=== PATIENT | male | born 1980 | race Caucasian/White ===

== ENCOUNTER 2021-01-22 12:57 | Day surgery (SDC) | payer SELFPAY ==
[2021-01-22] VITALS (8 sets, daily range): BP systolic 118–126; BP diastolic 59–82
[~2021-01-22] VITALS: Ht 177.8 cm; Wt 111.1 kg
--- NOTE | 2021-01-22 13:13 | ED Abdominal Pain ---
General Chief Complaint: Abdominal/GI Problems Stated Complaint: STOMACH PAIN Source of Information: Patient Exam Limitations: No Limitations History of Present Illness Date Seen by Provider: Jan 22, 2021 Time Seen by Provider: 13:11 Initial Comments ER with right lower quadrant abdominal pain that he noticed upon awakening this morning. Had a bowel movement but that failed to improve or change his symptoms. No dysuria no fever no chills no nausea no vomiting. He had a protein bar at 7 AM. No testicular pain no dysuria. Was seen at [facility] and referred out here for further work-up. The pain is worsened by movement or walking fast Timing/Duration: 4-6 Hours Severity/Quality: Moderate Location: RLQ Radiation: No Radiation Activities at Onset: None Associated Symptoms: Denies Symptoms Allergies and Home Medications Allergies Coded Allergies: No Known Drug Allergies (Unverified , 01/07/14) Patient Home Medication List Home Medication List Reviewed: Yes Review of Systems Review of Systems Constitutional: see HPI EENTM: No Symptoms Reported Respiratory: No Symptoms Reported Cardiovascular: No Symptoms Reported Gastrointestinal: See HPI, Abdominal Pain Genitourinary: No Symptoms Reported Musculoskeletal: no symptoms reported Skin: no symptoms reported Psychiatric/Neurological: No Symptoms Reported Endocrine: No Symptoms Reported Hematologic/Lymphatic: No Symptoms Reported Past Emgpnef-Ydyeye-Cbsgnb Hx Past Medical History HIV/AIDS: No Loss of Vision: Denies Hearing Impairment: Denies Sleep Difficulties Family Medical History Alcoholism 19 FATHER Family history: Thyroid disorder G8 SISTER History of drug abuse 19 FATHER Physical Exam Vital Signs Vital Signs - First Documented 01/22/21 13:10 Temp 37.7 Pulse 93 Resp 18 B/P (MAP) 124/77 (93) O2 Delivery Room Air Capillary Refill : Height/Weight/BMI Height: 5'10.00" Weight: 238lbs. 0.0oz. [id number]; BMI Method:Stated General Appearance: WD/WN, no apparent distress, obese HEENT: PERRL/EOMI, normal ENT inspection Respiratory: no respiratory distress, no accessory muscle use Cardiovascular: regular rate, rhythm, no murmur Gastrointestinal: normal bowel sounds, non tender, soft, tenderness Extremities: normal range of motion, non-tender Neurologic/Psychiatric: alert, normal mood/affect, oriented x 3 Skin: normal color, warm/dry Progress/Results/Core Measures Results/Orders Lab Results Laboratory Tests Test 01/22/21 13:24 01/22/21 13:32 Range/Units White Blood Count 13.1 H 4.3-11.0 10^3/uL Red Blood Count 5.62 H 4.30-5.52 10^6/uL Hemoglobin 15.8 13.3-17.7 g/dL Hematocrit 47 40-54 % Mean Corpuscular Volume 83 80-99 fL Mean Corpuscular Hemoglobin 28 25-34 pg Mean Corpuscular Hemoglobin Concent 34 32-36 g/dL Red Cell Distribution Width 13.1 10.0-14.5 % Platelet Count 156 130-400 10^3/uL Mean Platelet Volume 11.8 9.0-12.2 fL Immature Granulocyte % (Auto) 0 % Neutrophils (%) (Auto) 90 H 42-75 % Lymphocytes (%) (Auto) 5 L 12-44 % Monocytes (%) (Auto) 5 0-12 % Eosinophils (%) (Auto) 0 0-10 % Basophils (%) (Auto) 0 0-10 % Neutrophils # (Auto) 11.7 H 1.8-7.8 10^3/uL Lymphocytes # (Auto) 0.6 L 1.0-4.0 10^3/uL Monocytes # (Auto) 0.6 0.0-1.0 10^3/uL Eosinophils # (Auto) 0.1 0.0-0.3 10^3/uL Basophils # (Auto) 0.1 0.0-0.1 10^3/uL Immature Granulocyte # (Auto) 0.0 0.0-0.1 10^3/uL Neutrophils % (Manual) 88 % Lymphocytes % (Manual) 7 % Monocytes % (Manual) 5 % Blood Morphology Comment NORMAL Sodium Level 143 135-145 MMOL/L Potassium Level 4.8 3.6-5.0 MMOL/L Chloride Level 105 98-107 MMOL/L Carbon Dioxide Level 25 21-32 MMOL/L Anion Gap 13 5-14 MMOL/L Blood Urea Nitrogen 18 7-18 MG/DL Creatinine 0.94 0.60-1.30 MG/DL Estimat Glomerular Filtration Rate > 60 BUN/Creatinine Ratio 19 Glucose Level 106 H 70-105 MG/DL Calcium Level 9.6 8.5-10.1 MG/DL Corrected Calcium 8.5-10.1 MG/DL Total Bilirubin 0.7 0.1-1.0 MG/DL Aspartate Amino Transf (AST/SGOT) 19 5-34 U/L Alanine Aminotransferase (ALT/SGPT) 22 0-55 U/L Alkaline Phosphatase 74 40-136 U/L Total Protein 8.0 6.4-8.2 GM/DL Albumin 4.6 H 3.2-4.5 GM/DL Urine Color YELLOW Urine Clarity CLEAR Urine pH 7.5 5-9 Urine Specific [place] 1.020 1.016-1.022 Urine Protein NEGATIVE NEGATIVE Urine Glucose (UA) NEGATIVE NEGATIVE Urine Ketones NEGATIVE NEGATIVE Urine Nitrite NEGATIVE NEGATIVE Urine Bilirubin NEGATIVE NEGATIVE Urine Urobilinogen 1.0 < = 1.0 MG/DL Urine Leukocyte Esterase NEGATIVE NEGATIVE Urine RBC (Auto) NEGATIVE NEGATIVE Urine RBC NONE /HPF Urine WBC NONE /HPF Urine Crystals PRESENT H /LPF Urine Amorphous Sediment FEW JAYLYN PHOSPHATE H /LPF Urine Bacteria NEGATIVE /HPF Urine Casts NONE /LPF Urine Mucus NEGATIVE /LPF Urine Culture Indicated NO My Orders Orders - JUNE MARTE APRN Cbc With Automated Diff (01/22/21 13:10) Comprehensive Metabolic Panel (01/22/21 13:10) Ua Culture If Indicated (01/22/21 13:10) Ed Iv/Invasive Line Start (01/22/21 13:10) Ct Abd/Pelv W (Appendicitis) (01/22/21 13:10) Ketorolac Injection (Toradol Injection) (01/22/21 13:15) Manual Differential (01/22/21 13:24) Iohexol Injection (Omnipaque 350 Mg/Ml 1 (01/22/21 14:00) Received Contrast (Hold Metformin- Contr (01/22/21 14:00) Sodium Chloride Flush (Catheter Flush Sy (01/22/21 14:00) Ns (Ivpb) (Sodium Chloride 0.9% Ivpb Bag (01/22/21 14:00) Lidocaine/Epi 1% 1:100,000 (Xylocaine /E (01/22/21 14:43) Lorazepam Injection (Ativan Injection) (01/22/21 15:00) Fentanyl Inj (Sublimaze Injection) (01/22/21 14:49) Midazolam Injection (Versed Injection) (01/22/21 14:49) Lorazepam Injection (Ativan Injection) (01/22/21 14:51) Rocuronium 5 Ml Syringe (Rocuronium 5 Ml (01/22/21 14:53) Propofol Injection (Diprivan Injection) (01/22/21 14:53) Dexamethasone Injection (Decadron Inje (01/22/21 14:53) Ondansetron Injection (Zofran Injectio (01/22/21 14:53) Glycopyrrolate Injection (Robinul Inject (01/22/21 14:53) Neostigmine 3 Mg/3 Ml Vial (Neostigmine (01/22/21 14:53) Lidocaine 2% Pf 5 Ml (Xylocaine 2% Pf) (01/22/21 14:53) Sevoflurane (15 Min) Inhal Patti (Ultane ( (01/22/21 14:53) Medications Given in ED Current Medications Medications Dose Ordered Sig/Courtney Route Start Time Stop Time Status Last Admin Dose Admin Iohexol 100 ml ONCE ONCE IV 01/22/21 14:00 01/22/21 14:01 DC 01/22/21 14:04 100 ML Ketorolac Tromethamine 15 mg ONCE ONCE IVP 01/22/21 13:15 01/22/21 13:16 DC 01/22/21 13:28 15 MG Lorazepam 0.5 mg ONCE PRN IVP 01/22/21 15:00 01/22/21 15:12 0.5 MG Sodium Chloride 10 ml NEEDED PRN IV 01/22/21 14:00 01/22/21 14:04 10 ML Sodium Chloride 100 ml ONCE ONCE IV 01/22/21 14:00 01/22/21 14:01 DC 01/22/21 14:04 80 ML Vital Signs/I&O 01/22/21 13:10 Temp 37.7 Pulse 93 Resp 18 B/P (MAP) 124/77 (93) O2 Delivery Room Air Diagnostic Imaging Diagonstic Imaging: CT Comments NAME: VARUN HOSKINS [facility] REC#: [id number] PT STATUS: REG ER : 1980 PHYSICIAN: JUNE MARTE APRN ADMIT DATE: 01/22/21/ER Signed Date of Exam:01/22/21 CT ABD/PELV W (APPENDICITIS) PROCEDURE: CT abdomen and pelvis with contrast, rule out appendicitis. TECHNIQUE: Multiple contiguous axial images were obtained through the abdomen and pelvis after the administration of intravenous contrast. All CT scans use one or more of the following dose optimizing techniques: automated exposure control, MA and/or KvP adjustment based on patient size and exam type or iterative reconstruction. INDICATION: Right lower quadrant pain FINDINGS: The heart size is normal. The lung bases are clear. The liver is normal in size without focal lesions. Gallbladder is unremarkable. No biliary duct dilatation. Spleen is normal. The pancreas and adrenal glands are unremarkable. Kidneys normal in appearance. Aorta is nonaneurysmal. The bowel gas pattern is nonspecific. The appendix measures up to 9 mm in diameter. Some trace surrounding inflammatory change. There is no abnormal fluid collection. Bladder is normal. No pelvic mass or adenopathy. The osseous structures are unremarkable. IMPRESSION: Findings are suspect for a very early appendicitis. Recommend clinical correlation. No other acute abnormality in the abdomen or pelvis. Findings conveyed directly to June Marte APRN at 2:23 PM Dictated by: Dictated on workstation # [id number] Dict: 01/22/21 1419 Trans: 01/22/21 1428 CV [id number] Interpreted by: AMAN LAUGHLIN MD Electronically signed by: AMAN LAUGHLIN MD 01/22/21 1428 Departure Communication (Admissions) [id number]-Dr Avilez has been here to see the patient, to take to OR for lap appy. Impression Primary Impression: Appendicitis Disposition: ADMITTED INPATIENT Condition: Stable Admissions Decision to Admit Reason: Admit from ER (General) Decision to Admit/Date: Jan 22, 2021 Time/Decision to Admit Time: 14:08 Departure-Patient Inst. Referrals: NO,LOCAL PHYSICIAN (PCP/Family) Primary Care Physician JUNE MARTE APRN Jan 22, 2021 13:13
[2021-01-22] MEDS ORDERED: KETOROLAC 30 MG/ML VIAL IVP ONE (13:15)
[2021-01-22 13:32] LABS: BASOPHILS # (AUTO) 0.1 10^3/uL (0.0-0.1); BASOPHILS % (AUTO) 0 % (0-10); EOSINOPHILS # (AUTO) 0.1 10^3/uL (0.0-0.3); EOSINOPHILS % (AUTO) 0 % (0-10); HEMATOCRIT 47 % (40-54); HEMOGLOBIN 15.8 g/dL (13.3-17.7); LYMPHOCYTES # (AUTO) 0.6 10^3/uL (1.0-4.0); LYMPHOCYTES % (AUTO) 5 % (12-44); MEAN CORPUSCULAR HEMOGLOBIN 28 pg (25-34); MEAN CORPUSCULAR HGB CONC 34 g/dL (32-36); MEAN CORPUSCULAR VOLUME 83 fL (80-99); MEAN PLATELET VOLUME 11.8 fL (9.0-12.2); MONOCYTES # (AUTO) 0.6 10^3/uL (0.0-1.0); MONOCYTES % (AUTO) 5 % (0-12); NEUTROPHILS # (AUTO) 11.7 10^3/uL (1.8-7.8); NEUTROPHILS % (AUTO) 90 % (42-75); PLATELET COUNT 156 10^3/uL (130-400); WHITE BLOOD COUNT 13.1 10^3/uL (4.3-11.0)
[2021-01-22 13:37] LABS: BILIRUBIN,URINE NEGATIVE (NEGATIVE); CLARITY,URINE CLEAR; COLOR,URINE YELLOW; GLUCOSE, URINE (UA) NEGATIVE (NEGATIVE); KETONES,URINE NEGATIVE (NEGATIVE); LEUKOCYTE ESTERASE ,URINE NEGATIVE (NEGATIVE); NITRITE,URINE NEGATIVE (NEGATIVE); PH,URINE 7.5 (5-9); PROTEIN,URINE NEGATIVE (NEGATIVE)
[2021-01-22 13:41] LABS: ALBUMIN 4.6 GM/DL (3.2-4.5); CHLORIDE 105 MMOL/L (98-107); POTASSIUM 4.8 MMOL/L (3.6-5.0); SODIUM 143 MMOL/L (135-145)
[2021-01-22 13:42] LABS: CALCIUM 9.6 MG/DL (8.5-10.1)
[2021-01-22 13:43] LABS: GLUCOSE 106 MG/DL (70-105)
[2021-01-22 13:44] LABS: CARBON DIOXIDE 25 MMOL/L (21-32)
[2021-01-22 13:45] LABS: BILIRUBIN,TOTAL 0.7 MG/DL (0.1-1.0)
[2021-01-22 13:47] LABS: ALKALINE PHOSPHATASE 74 U/L (40-136); CREATININE SERUM 0.94 MG/DL (0.60-1.30); GFR ESTIMATED > 60
[2021-01-22 13:48] LABS: BUN/CREATININE RATIO 19
[2021-01-22 13:50] LABS: ALANINE AMINOTRANSFERASE 22 U/L (0-55)
[2021-01-22 13:50] LABS: AMORPHOUS SEDIMENT,UR FEW AMOR PHOSPHATE /LPF; BACTERIA,URINE NEGATIVE /HPF
[2021-01-22] MEDS ORDERED: IOHEXOL 350 MG/ML 100 ML (OMNIPAQUE 350) VIAL IV ONE (14:00)
[2021-01-22] MEDS ORDERED: CATHETER FLUSH 10 ML SYR IV PRN (14:00)
[2021-01-22] MEDS ORDERED: HOLD METFORMIN - RECEIVED CONTRAST 20 ML VIAL IV SCH (14:00)
[2021-01-22] MEDS ORDERED: NS 100 ML (IVPB) BAG IV ONE (14:00)
[2021-01-22 14:20] LABS: LYMPHOCYTES % (MANUAL) 7 %; MONOCYTES % (MANUAL) 5 %; NEUTROPHILS % (MANUAL) 88 %; RBC MORPH NORMAL
--- NOTE | 2021-01-22 14:27 | Diagnostic Imaging Report ---
PROCEDURE: CT abdomen and pelvis with contrast, rule out appendicitis. TECHNIQUE: Multiple contiguous axial images were obtained through the abdomen and pelvis after the administration of intravenous contrast. All CT scans use one or more of the following dose optimizing techniques: automated exposure control, MA and/or KvP adjustment based on patient size and exam type or iterative reconstruction. INDICATION: Right lower quadrant pain FINDINGS: The heart size is normal. The lung bases are clear. The liver is normal in size without focal lesions. Gallbladder is unremarkable. No biliary duct dilatation. Spleen is normal. The pancreas and adrenal glands are unremarkable. Kidneys normal in appearance. Aorta is nonaneurysmal. The bowel gas pattern is nonspecific. The appendix measures up to 9 mm in diameter. Some trace surrounding inflammatory change. There is no abnormal fluid collection. Bladder is normal. No pelvic mass or adenopathy. The osseous structures are unremarkable. IMPRESSION: Findings are suspect for a very early appendicitis. Recommend clinical correlation. No other acute abnormality in the abdomen or pelvis. Findings conveyed directly to Luke Marte APRN at 2:23 PM Dictated by: Dictated on workstation # [id number]
[2021-01-22] MEDS ORDERED: LIDOCAINE/EPI 1%-1:100,000 (XYLOCAINE) 20ML ONE (14:43)
[2021-01-22] MEDS ORDERED: fentaNYL INJ 100 MCG/2 ML AMP ONE (14:49)
[2021-01-22] MEDS ORDERED: MIDAZOLAM 2 MG/2 ML (VERSED) VIAL ONE (14:49)
[2021-01-22] MEDS ORDERED: LORazepam INJ 2 MG/ML (ATIVAN) VIAL ONE (14:51)
[2021-01-22] MEDS ORDERED: NEOSTIGMINE 3 MG/3 ML VIAL ONE (14:53)
[2021-01-22] MEDS ORDERED: ONDANSETRON 4 MG/2 ML (SDV) Z0FRAN ONE (14:53)
[2021-01-22] MEDS ORDERED: GLYCOPYRROLATE 0.2 MG/ML (ROBINUL) 2 ML VIAL ONE (14:53)
[2021-01-22] MEDS ORDERED: ROCURONIUM 10 MG/ML 5 ML SYRINGE IV ONE (14:53)
[2021-01-22] MEDS ORDERED: proPOfol 200 MG/20 ML (DIPRIVAN) VIAL IV ONE (14:53)
[2021-01-22] MEDS ORDERED: SEVOFLURANE (ULTANE) 15 ML INHAL SOLN ONE (14:53)
[2021-01-22] MEDS ORDERED: LIDOCAINE PF 2% 5 ML (XYLOCAINE) VIAL ONE (14:53)
[2021-01-22] MEDS ORDERED: LORazepam INJ 2 MG/ML (ATIVAN) VIAL IVP PRN (15:00)
[2021-01-22] MEDS ORDERED: LACTATED RINGERS 1,000 ML IV PRN (15:00)
--- NOTE | 2021-01-22 15:37 | Consultation - Surgery ---
History of Present Illness History of Present Illness Patient Consulted On(yesica/time) 01/22/21 15:30 Time Seen by Provider: 15:14 History of Present Illness Surgery asked to consult regarding RLQ pain. HPI per ED: ER with right lower quadrant abdominal pain that he noticed upon awakening this morning. Had a bowel movement but that failed to improve or change his symptoms. No dysuria no fever no chills no nausea no vomiting. He had a protein bar at 7 AM. No testicular pain no dysuria. Was seen at [facility] and referred out here for further work-up. The pain is worsened by movement or walking fast Timing/Duration: 4-6 Hours Severity/Quality: Moderate Location: RLQ Radiation: No Radiation Activities at Onset: None Associated Symptoms: Denies Symptoms Pt rated the pain as 4-5 out of 10, has never had pain like this before. It was a dull, constant ache with occasional stabbing. "I thought it was just gas pain s". Allergies and Home Medications Allergies Coded Allergies: No Known Drug Allergies (Unverified , 01/07/14) Patient Home Medication List Home Medication List Reviewed: Yes (Pt takes gabapentin, trileptal, and others) Past Fxocynj-Aeraic-Ttgojd Hx Patient Social History Smoking Status: Former Smoker Type Used: Smokeless Tobacco 2nd Hand Smoke Exposure: No Recent Hopitalizations: No Alcohol Use?: Yes Seasonal Allergies Seasonal Allergies: No Surgeries History of Surgeries: Yes Surgeries: Orthopedic Respiratory History of Respiratory Disorde: No Cardiovascular History of Cardiac Disorders: No Neurological History of Neurological Disord: No Reproductive System HIV/AIDS: No Genitourinary History of Genitourinary Disor: No Gastrointestinal History of Gastrointestinal Di: No Musculoskeletal History of Musculoskeletal Dis: Yes (Fx left wrist, broke Left Shoulder) Endocrine History of Endocrine Disorders: No HEENT History of HEENT Disorders: No Loss of Vision: Denies Hearing Impairment: Denies Cancer History of Cancer: No Psychosocial History of Psychiatric Problem: Yes Behavioral Health Disorders: Sleep Difficulties, Anxiety, Depression Integumentary History of Skin or Integumenta: No Blood Transfusions History of Blood Disorders: No Family Medical History Significant Family History: Psychiatric Problems (mother), Other Conditions/Hx (Thyroid sister) Family Medial History: Alcoholism 19 FATHER Family history: Thyroid disorder G8 SISTER History of drug abuse 19 FATHER Review of Systems-General Constitutional: No chills, No diaphoresis EENTM: No blurred vision, No double vision, No mouth swelling, No epistaxis Respiratory: No dyspnea on exertion, No hemoptysis, No short of breath Cardiovascular: No chest pain, No edema, No palpitations Gastrointestinal: abdominal pain; No jaundice, No nausea, No vomiting Genitourinary: No dysuria, No frequency, No hematuria Musculoskeletal: No joint pain, No joint swelling, No muscle pain, No muscle stiffness Skin: No change in color, No change in hair/nails Psychiatric/Neurological: Anxiety, Depressed; Denies Seizure, Denies Tremors Other pt denies any hx of abnormal bleeding or bruising Physical Exam-General Problems Physical Exam Vital Signs Vital Signs - First Documented 01/22/21 13:10 Temp 37.7 Pulse 93 Resp 18 B/P (MAP) 124/77 (93) O2 Delivery Room Air Capillary Refill : Less Than 3 Seconds General Appearance: mild distress Eyes: Bilateral Eye PERRL, Bilateral Eye EOMI HEENT: pharynx normal; No scleral icterus (R), No scleral icterus (L) Neck: non-tender, supple, normal inspection Respiratory: lungs clear, normal breath sounds, no respiratory distress, no accessory muscle use Cardiovascular: regular rate, rhythm, no murmur Gastrointestinal: soft, no organomegaly, tenderness Back: no CVA tenderness, no vertebral tenderness Extremities: non-tender, normal inspection, no pedal edema, no calf tenderness Neurologic/Psychiatric: 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 II-XII nml as tested, no motor/sensory deficits, alert, normal mood/affect, oriented x 3 Skin: normal color, warm/dry, tattoos/piercings Lymphatic: no adenopathy (neck, axilla or groin) Data Review Labs Laboratory Tests 01/22/21 13:24: White Blood Count 13.1H, Red Blood Count 5.62H, Hemoglobin 15.8, Hematocrit 47, Mean Corpuscular Volume 83, Mean Corpuscular Hemoglobin 28, Mean Corpuscular Hemoglobin Concent 34, Red Cell Distribution Width 13.1, Platelet Count 156, Mean Platelet Volume 11.8, Immature Granulocyte % (Auto) 0, Neutrophils (%) (Auto) 90H, Lymphocytes (%) (Auto) 5L, Monocytes (%) (Auto) 5, Eosinophils (%) (Auto) 0, Basophils (%) (Auto) 0, Neutrophils # (Auto) 11.7H, Lymphocytes # (Auto) 0.6L, Monocytes # (Auto) 0.6, Eosinophils # (Auto) 0.1, Basophils # (Auto) 0.1, Immature Granulocyte # (Auto) 0.0, Neutrophils % (Manual) 88, Lymphocytes % (Manual) 7, Monocytes % (Manual) 5, Blood Morphology Comment NORMAL, Sodium Level 143, Potassium Level 4.8, Chloride Level 105, Carbon Dioxide Level 25, Anion Gap 13, Blood Urea Nitrogen 18, Creatinine 0.94, Estimat Glomerular Filtration Rate > 60, BUN/Creatinine Ratio 19, Glucose Level 106H, Calcium Level 9.6, Corrected Calcium , Total Bilirubin 0.7, Aspartate Amino Transf (AST/SGOT) 19, Alanine Aminotransferase (ALT/SGPT) 22, Alkaline Phosphatase 74, Total Protein 8.0, Albumin 4.6H 01/22/21 13:32: Urine Color YELLOW, Urine Clarity CLEAR, Urine pH 7.5, Urine Specific [place] 1.020, Urine Protein NEGATIVE, Urine Glucose (UA) NEGATIVE, Urine Ketones NEGATIVE, Urine Nitrite NEGATIVE, Urine Bilirubin NEGATIVE, Urine Urobilinogen 1.0, Urine Leukocyte Esterase NEGATIVE, Urine RBC (Auto) NEGATIVE, Urine RBC NONE, Urine WBC NONE, Urine Crystals PRESENTH, Urine Amorphous Sediment FEW JAYLYN PHOSPHATEH, Urine Bacteria NEGATIVE, Urine Casts NONE, Urine Mucus NEGATIVE, Urine Culture Indicated NO Radiology Date of Exam:01/22/21 CT ABD/PELV W (APPENDICITIS) PROCEDURE: CT abdomen and pelvis with contrast, rule out appendicitis. TECHNIQUE: Multiple contiguous axial images were obtained through the abdomen and pelvis after the administration of intravenous contrast. All CT scans use one or more of the following dose optimizing techniques: automated exposure control, MA and/or KvP adjustment based on patient size and exam type or iterative reconstruction. INDICATION: Right lower quadrant pain FINDINGS: The heart size is normal. The lung bases are clear. The liver is normal in size without focal lesions. Gallbladder is unremarkable. No biliary duct dilatation. Spleen is normal. The pancreas and adrenal glands are unremarkable. Kidneys normal in appearance. Aorta is nonaneurysmal. The bowel gas pattern is nonspecific. The appendix measures up to 9 mm in diameter. Some trace surrounding inflammatory change. There is no abnormal fluid collection. Bladder is normal. No pelvic mass or adenopathy. The osseous structures are unremarkable. IMPRESSION: Findings are suspect for a very early appendicitis. Recommend clinical correlation. No other acute abnormality in the abdomen or pelvis. 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 Discussed the procedure with pt including risks and complications not limited to pain, bleeding, infection, scar and damage to bowel. All questions answered to his satisfaction. I explained that his pain is classic for appendicitis, his WBC is elevated and radiology read CT as early appendicitis. I agree with the reading, the appendix is enlarged and there appears to be inflammatory changes around appendix. JOSUÉ RICHARDSON DO Jan 22, 2021 15:37
[2021-01-22] MEDS ORDERED: ceFAZolin 2 GM IV Premixed 50 ML IV ONE (15:45)
[2021-01-22] MEDS ORDERED: ceFAZolin 2 GM IV Premixed 50 ML ONE (15:50)
[2021-01-22] MEDS ORDERED: SUCCINYLCHOLINE INJ 100 MG/5 ML SYR/VIAL ONE ×2 (16:07→16:34)
--- NOTE | 2021-01-22 16:33 | Progress Note-Post Operative ---
Post-Operative Progess Note Surgeon (s)/[facility] (s) Surgeon JOSUÉ RICHARDSON DO [facility]: NONE Pre-Operative Diagnosis Acute appy Post-Operative Diagnosis same Procedure & Operative Findings Date of Procedure 01/22/21 Procedure Performed/Findings PROCEDURE: Laparoscopic appendectomy. COMPLICATIONS: None. INDICATIONS: The patient is a 40 year old male who has been having right lower quadrant abdominal pain. Patient's exam consistent with appendicitis. I discussed risk and benefits of laparoscopic appendectomy and all indicated procedures with the possibility being a normal appendix. The patient understands the risks and benefits and wishes to proceed. Consent was signed on the chart. DESCRIPTION OF PROCEDURE: The patient was taken to the operating suite, prepped and draped in a sterile fashion. Timeout was performed. Local anesthetic was infiltrated just above the umbilicus and 11-blade scalpel was used to make a skin incision. Cautery was used to dissect down to the fascia and scored. Kochers were used to grasp and elevate it and the abdomen was then entered. A 0 Vicryl was placed in a [id number] fashion for closure at the end of the case. The balloon trocar was inserted into the abdomen and pneumoperitoneum was achieved. Under direct visualization of the laparoscope, a 5 mm trocar was placed in the suprapubic region and a 5 mm trocar was placed in the left lower quadrant. Appendix was located, it was inflamed and enlarged with fibrinous material. The base of the appendix was dissected around. Once at the base an Endo-DANNY 2.5 stapler was then fired across the base of the appendix. The mesoappendix was then divided. It was then placed in an Endobag and removed through the 12 mm trocar site. The abdomen was then irrigated and suctioned. No other pathology noted. The abdomen was then desufflated and the trocars were removed. The 0 Vicryl placed at the beginning of the case was then tied closing the 12 mm fascial defect. The skin was then closed using 4-0 Monocryl in a subcuticular fashion. The abdomen was then washed and dried and Skin Affix was placed over the incisions. The patient tolerated the procedure well without any complications and was taken to the recovery room in stable condition. Anesthesia Type GET Estimated Blood Loss Estimated blood loss (mL): scant Specimens/Packing Specimens Removed JOSUÉ Miller DO Jan 22, 2021 16:33
[2021-01-22] MEDS ORDERED: ACHD5005 PO (16:34)
--- NOTE | 2021-01-22 16:35 | Discharge Inst-Surgical ---
Discharge Inst-Surgical Depart Medication/Instructions New, Converted or Re-Newed RX: RX Given to Pt/Family Patient Instructions Follow up Appt: Make appointment for 1 week. [phone] Instructions: No lifting greater than 20 pounds. No strenuous activity. May shower in 24 hours, no tub bath or soaking. Use incentive spirometer at home as directed. No Smoking Skin/Wound Care: May remove bandages in am. You need to leave the Dermabond on incision it will fall off on it's own. Symptoms to Report: Appetite Changes, Extremity Discoloration, Numbness/Tingling, Swelling Increased, Bleeding Excessive, Eyesight Changes, Pain Increased, Urine Color Change, Constipation(Persistent), Fever over 101 degree F, Pain/Pressure in chest, Urinating Difficulty, Cough Up/Vomit Blood, Heart Beat Irreg/Pounding, Pain/Pressure in jaw, Cramps in feet or legs, Lightheadedness, Pain/Pressure in shoulder, Diarrhea(Persistent), Memory Changes Suddenly, Questions/Concerns, Weight gain consecutive days, Dizziness/Fainting, Nausea/Vomiting, Shortness of Breath, Weight gain over 2 pounds If questions or concerns contact your physician Or seek help at emergency department. Activity Activity as Tolerated: Yes Activity Instructions: Avoid Stress to Incision Driving Instructions: No Driving/Refer to Dr. Arnold Discharge Diet: No Restrictions Diet After 24 Hours: Clear Liquid if Nauseous If Any Problems/Questions/Issu: Contact Your Physician, Go to Emergency Room Skin/Wound Care Infection Signs and Symptoms: Increased Redness, Foul Odor of Wound, Increased Drainage, Skin Itchy or Has a Rash, Increased Swelling, Temperature Above 101 F Wound Care Comment: heating pad to shoulder or neck for pain tonight Bathing Instructions: Shower (in am) Stitches/Gill/Dermabond Dis: Dermabond Ice Pack: Ice On and Off Site (as needed for pain at incision sites) JOSUÉ RICHARDSON DO Jan 22, 2021 16:35
--- NOTE | 2021-01-22 16:48 | Anesthesia-General Post-Op ---
General Patient Condition Mental Status/LOC: Same as Preop Cardiovascular: Satisfactory Nausea/Vomiting: Absent Respiratory: Satisfactory Pain: Controlled Complications: Absent Post Op Complications Complications None Follow Up Care/Instructions Patient Instructions None needed. Anesthesia/Patient Condition Patient Condition Patient is doing well, no complaints, stable vital signs, no apparent adverse anesthesia problems. No complications reported per nursing. TERRENCE MELLO CRNA Jan 22, 2021 16:48
[2021-01-22] MEDS ORDERED: ONDANSETRON 4 MG/2 ML (SDV) Z0FRAN IVP PRN (17:00)
[2021-01-22] MEDS ORDERED: morphine INJ 10 MG/ML 1ML (SYR OR VIAL) IVP ONE (17:00)
[2021-01-22] MEDS ORDERED: fentaNYL INJ 100 MCG/2 ML AMP IVP ONE (17:00)
== END 2021-01-22 18:15 | disposition home or self-care (01) ==
LOC: EDUNIT# 12:57 → ER 12:59 → SDC 15:05
PROVIDERS: ATTEND Surgery
DX: K35.80 Unspecified acute appendicitis (principal); F32.9 Major depressive disorder, single episode, unspecified; K21.9 Gastro-esophageal reflux disease without esophagitis; E66.9 Obesity, unspecified; Z68.35 Body mass index [BMI] 35.0-35.9, adult; Z79.899 Other long term (current) drug therapy
CPT/HCPCS: 36415; 74177; 80053; 81000; 85007; 85027; 88304; 96374; 96375